=== PATIENT | female | born 1945 | race Caucasian/White ===

== ENCOUNTER 2020-06-21 10:39 | Outpatient (CLI) | payer MEDICARE, OTHER ==
[2020-06-21 18:22] LABS: INR-International Normal Ratio 1.1; PTT 30.7 sec (22.9-36.1)
[2020-06-21 18:42] LABS: Anion Gap 12 mmol/L (10-20); BUN (Urea Nitrogen) 5 mg/dL (9.8-20.1); Calc. Creatinine Clearance 0 mL/min (70-130); Calcium 9.4 mg/dL (7.8-10.44); Carbon Dioxide 28 mmol/L (23-31); Chloride 102 mmol/L (98-107); Estimated GFR-MDRD 80; Glucose 103 mg/dL (83-110); Potassium 3.9 mmol/L (3.5-5.1); Sodium 138 mmol/L (136-145)
[2020-06-21 19:24] LABS: Band 1 % (5-11); Eosinophils 6 % (0-10); Hemoglobin 10.2 g/dL (12.0-16.0); Hypochromia SLIGHT = 6-15 cells (100X) (0-5/hpf); Lymphocytes 15 % (21-51); MDiff Complete? YES; Mean Corpuscular HGB CONC 31.9 g/dL (32.0-36.0); Mean Corpuscular Hemoglobin 26.9 pg (27.0-31.0); Mean Corpuscular Volume 84.5 fL (78.0-98.0); Mean Platelet Volume 6.6 fL (7.4-10.4); Monocytes 16 % (0-10); Neutrophil 52 % (42-75); Platelet Count 443 thou/uL (130-400); Platelet Morphology Comment Appears Increased; Polychromasia SLIGHT = 2-3 cells (100X) (0-2/hpf); RBC Distribution Width 13.9 % (11.5-14.5); Reactive Lymphocytes 10 % (0-10); Red Blood Cell (RBC) Count 3.78 mill/uL (4.20-5.40); White Blood Cell (WBC) Count 9.4 thou/uL (4.8-10.8)
[2020-06-22 14:22] LABS: SARS-CoV-2 MS2 Positive; SARS-CoV-2 N Gene Negative; SARS-CoV-2 S Gene Negative; SARS-CoV-2 by NAA Not Detected (NotDetected); SARS-CoV-2 orf1ab Negative
== END 2020-06-21 10:40 | disposition home or self-care (01) ==
LOC: LABBT 10:39
PROVIDERS: ATTEND Orthopaedic Surgery
DX: Z01.812 Encounter for preprocedural laboratory examination (principal); Z11.59 Encounter for screening for other viral diseases; S42.201A Unspecified fracture of upper end of right humerus, initial encounter for closed fracture
CPT/HCPCS: 80048; 85025; 85610; 85730; U0003; 87635

== ENCOUNTER 2020-06-24 10:13 | Day surgery (SDC) | payer MEDICARE ==
[2020-06-22 13:05] VITALS: BMI 32.2
[2020-06-24] MEDS ORDERED: Fentanyl 100 MCG/2 ML VIAL ONE (10:57)
[2020-06-24] MEDS ORDERED: Midazolam HCl 2 mg/2 ml Vial ONE (10:57)
[2020-06-24] MEDS ORDERED: PROPOFOL 200 MG/20 ML VIAL ONE (11:13)
[2020-06-24] MEDS ORDERED: Lidocaine 1% PF 5 ML VIAL ONE (11:13)
[2020-06-24] MEDS ORDERED: Dexamethasone 20 MG/5 ML VIAL ONE (11:13)
[2020-06-24] MEDS ORDERED: Ondansetron PF 4 MG/2 ML Vial ONE (11:13)
[2020-06-24] MEDS ORDERED: Bupivacaine HCl 0.5%/Epinephrine 1:200,000/PF 30 ml Vial ONE (11:13)
[2020-06-24] MEDS ORDERED: Rocuronium Bromide 10 MG/ML (10ML VIAL) ONE (11:13)
[2020-06-24] MEDS ORDERED: PHENYLEPHRINE-NS 100 MCG/ML 10 ML SYRINGE ONE (11:13)
[2020-06-24] MEDS ORDERED: Ropivacaine 0.2% HCl/PF (40 MG/20 ML VIAL) ONE (11:13)
[2020-06-24] MEDS ORDERED: Glycopyrrolate 0.2 MG/ML 5 ML SYRINGE ONE (11:13)
[2020-06-24] MEDS ORDERED: EPHEDRINE 25 MG/5 ML SYRINGE ONE (11:13)
[2020-06-24] MEDS ORDERED: Sodium Chloride For Inhalation 0.9% 3 ML NEB ONE (11:56)
[2020-06-24] MEDS ORDERED: Phenylephrine 10 MG/ML VIAL ONE (13:37)
[2020-06-24] MEDS ORDERED: Rocuronium Bromide 50 MG/5 ML VIAL ONE (13:51)
--- NOTE | 2020-06-24 13:53 | RAD ---
EXAM: RIGHT HUMERUS TWO VIEWS: 06/24/20 HISTORY: Status post ORIF right humerus. COMPARISON: 06/21/20. FINDINGS: Placement of metal plate and screws stabilizing a comminuted markedly displaced and foreshortened hum eral neck fracture with marked improvement in position and alignment. No dislocation. IMPRESSION: Successful ORIF comminuted, displaced, angulated and foreshortened right humeral neck fracture with c onsiderable improvement in position and alignment. POS: RRE
--- NOTE | 2020-06-24 15:20 | OP ---
DATE OF PROCEDURE: 06/24/2020 OPERATION PERFORMED: Open reduction and internal fixation of right proximal humerus fracture. PREOPERATIVE DIAGNOSIS: Right displaced proximal humerus fracture. POSTOPERATIVE DIAGNOSIS: Right displaced proximal humerus fracture. COMPLICATIONS: None. ESTIMATED BLOOD LOSS: 200 mL. ANCHOR TACKER: Daniel Prakash PA-C. IMPLANTS: Synthes proximal humeral plate with multiple locking and nonlocking screws. INDICATIONS: Ms. Umana is a 74-year-old female who has fallen and fractured her proximal humerus. She has been indicated for open reduction and internal fixation to restore anatomic alignment and promote healing. Risks have been reviewed in detail. She elected to proceed with the operation. DESCRIPTION OF PROCEDURE: Ms. Umana was identified in the preoperative holding area. Her correct extremity was marked. She was carried to the operating room. She was positioned supine. General anesthesia was induced. A multidisciplinary time-out was performed. The right upper extremity was prepped and draped in sterile fashion. We began the procedure with a deltopectoral approach to the proximal humerus. We dissected down through the subcutaneous tissues and exposed the deltopectoral interval, which was developed bluntly. We then exposed the underlying proximal humerus and proximal humeral fracture. There was significant displacement of the fracture. At this point, we cleared the bony edges. We placed the suture in the subscapularis as well as the rotator interval. We performed a biceps tenotomy at this point and sutured the biceps tendon down to the soft tissues over the humerus. Next, we cleared the bony edges and thoroughly irrigated. We then reduced the fracture into an anatomic position. We held this with K-wire fixation. We then applied a proximal humeral plate. Multiple screws were placed proximally and distally. We thoroughly irrigated and took x-ray images. We took images in orthogonal planes. All screws were appropriate. We filled the remaining screw holes and again took final images. At this point, we began closure. The rotator interval was closed with an Ethibond suture followed by subscapularis closure. At this point, we proceeded to close the deltopectoral interval and finished our layered closure. A sterile dressing was applied. The patient was taken to the recovery room in good condition. Job ID: [id number]
[2020-06-24] MEDS ORDERED: HYDROcodone/Acetaminophen 5/325 mg Tablet ONE (15:35)
== END 2020-06-24 16:15 | disposition home or self-care (01) ==
LOC: SDC 10:13
PROVIDERS: ATTEND Orthopaedic Surgery
PROC: 0PSC04Z Reposition Right Humeral Head with Internal Fixation Device, Open Approach (ICD-10-PCS; principal; 2020-06-24)
PROC: 3E0T3BZ Introduction of Anesthetic Agent into Peripheral Nerves and Plexi, Percutaneous Approach (ICD-10-PCS; 2020-06-24)
DX: S42.291A Other displaced fracture of upper end of right humerus, initial encounter for closed fracture (principal); G89.18 Other acute postprocedural pain; I10 Essential (primary) hypertension; G40.909 Epilepsy, unspecified, not intractable, without status epilepticus; E03.9 Hypothyroidism, unspecified; F41.9 Anxiety disorder, unspecified; Z87.891 Personal history of nicotine dependence; Z79.899 Other long term (current) drug therapy; W19.XXXA Unspecified fall, initial encounter
CPT/HCPCS: 23615; 64415; 73060; 76000; C1713 ×3; J0670; J0690; J1100; J2250; J2370; J2405; J2704; J2795; J3010

== ENCOUNTER 2020-08-09 15:11 | Emergency (ER) | payer MEDICARE ==
[~2020-08-09 15:11] MED LIST: Iopamidol-370 76% 500 ML 1 ML ONE
[2020-08-09 16:33] LABS: #Basophils 0.1 thou/uL (0.0-0.2); #Eosinphils 0.5 thou/uL (0.0-0.7); #Lymphocytes 1.7 thou/uL (1.20-3.40); #Monocytes 1.5 thou/uL (0.11-0.59); #Neutrophils 7.6 thou/uL (1.40-6.50); %Basophils 0.6 % (0.0-1.0); %Eosinophils 4.4 % (0.0-10.0); %Lymphocytes 15.1 % (21.0-51.0); %Neutrophils 66.9 % (42.0-75.0); Hemoglobin 9.5 g/dL (12.0-16.0); Mean Corpuscular HGB CONC 31.6 g/dL (32.0-36.0); Mean Corpuscular Hemoglobin 24.3 pg (27.0-31.0); Mean Corpuscular Volume 76.7 fL (78.0-98.0); Mean Platelet Volume 6.7 fL (7.4-10.4); Platelet Count 431 thou/uL (130-400); RBC Distribution Width 19.8 % (11.5-14.5); Red Blood Cell (RBC) Count 3.92 mill/uL (4.20-5.40); White Blood Cell (WBC) Count 11.4 thou/uL (4.8-10.8)
[2020-08-09 16:50] LABS: ALT (SGPT) 12 U/L (8-55); AST (SGOT) 15 U/L (5-34); Albumin 3.9 g/dL (3.4-4.8); Alkaline Phosphatase 255 U/L (40-110); Anion Gap 12 mmol/L (10-20); BUN (Urea Nitrogen) 5 mg/dL (9.8-20.1); Bilirubin, Total 0.2 mg/dL (0.2-1.2); Calc. Creatinine Clearance 0 mL/min (70-130); Calcium 9.3 mg/dL (7.8-10.44); Carbon Dioxide 27 mmol/L (23-31); Chloride 101 mmol/L (98-107); Estimated GFR-MDRD 75; Globulin 3.9 g/dL (2.4-3.5); Glucose 103 mg/dL (83-110); Lipase 10 U/L (8-78); Protein, Total 7.8 g/dL (6.0-8.3); Sodium 137 mmol/L (136-145)
[2020-08-09 16:57] LABS: Bilirubin Negative (Negative); Blood, Urine Negative (Negative); Clarity Clear (Clear); Glucose, Urine (Dipstick) Normal (Negative); Ketone, Urine Negative (Negative); Leukocyte Negative Leu/uL (Negative); Nitrite Negative (Negative); Protein, Urine (Dipstick) Negative (Neg-Trace); Specific Gravity, Urine 1.003 (1.002-1.036); Urobilinogen Normal mg/dL (Less than 2); pH, Urine 6.5 (5.0-9.0)
[2020-08-09] MEDS ORDERED: Morphine 4 MG/ML VIAL ONE (17:31)
[2020-08-09] MEDS ORDERED: Ketorolac Tromethamine 30 MG/ML VIAL ONE (17:31)
--- NOTE | 2020-08-09 20:20 | CT ---
CT ABDOMEN AND PELVIS WITH IV CONTRAST: Date: 08/09/2020 PROVIDED CLINICAL HISTORY: Abdominal pain. FINDINGS: The visualized lung bases are free of significant opacity. There is a simple appearing cyst seen involving the right kidney. The solid abdominal organs demonstr ate an otherwise unremarkable CT appearance. There is conspicuous fecal retention within the transverse and right colon. There is no bowel dilatat ion, inflammatory fat stranding, free fluid, or free air apparent. There is no evidence for appendici tis. The gallbladder is decompressed. There is a 1.8 x 3.7 cm soft tissue mass in the posterior aspect of the right upper quadrant, abuttin g and somewhat inseparable from the posterior aspect of the right hepatic lobe. This is immediately a djacent to the right tenth rib. This demonstrates Hounsfield units of 55, which could indicate an enh ancing process. Occasional vascular calcifications are seen. The osseous structures demonstrate no concerning lytic or blastic lesions. IMPRESSION: 1. Conspicuous colonic fecal retention suggesting constipation. 2. 3.7 cm soft tissue mass within the right upper quadrant posteriorly adjacent to both the liver an d the posterior right tenth rib. 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 Other etiologies are possible. POS: CHARAN
== END 2020-08-09 20:24 | disposition home or self-care (01) ==
LOC: ERS 15:11
DX: K59.00 Constipation, unspecified (principal); D64.9 Anemia, unspecified; K76.89 Other specified diseases of liver; I10 Essential (primary) hypertension; J44.9 Chronic obstructive pulmonary disease, unspecified; F41.9 Anxiety disorder, unspecified; F32.9 Major depressive disorder, single episode, unspecified; Z79.899 Other long term (current) drug therapy
CPT/HCPCS: 36415; 74177; 80053; 81003; 83690; 85025; 96374; 96375; J1885; J2270; Q9967

== ENCOUNTER 2020-08-26 12:48 | Outpatient (CLI) | payer MEDICARE ==
--- NOTE | 2020-08-26 14:43 | PET ---
EXAM: PET/CT HISTORY: Soft tissue mass in the right upper quadrant, adjacent to the liver and posterior right 10th rib TECHNIQUE: PET scanning with CT attenuation correction was performed from the base of the brain to the proximal thighs following the intravenous administration of 9.7 millicuries [id number]. COMPARISON: CT abdomen pelvis with contrast dated August 09, 2020 FINDINGS: Biodistribution:The biodistribution for the exam appears acceptable. Head and neck: There is appropriate background activity within the brain. No hypermetabolic lymphaden opathy or masses identified. Thorax: No hypermetabolic pulmonary lesion, pleural effusion or lymphadenopathy is present. Abdomen and pelvis: There is expected background activity within the GI and systems.The 4.0 x 1.8 cm soft tissue density mass involving the undersurface of the right posterior lateral 10th rib, involving the right posterior lateral chest wall and diaphragm, is stable to the comparison examinati on. There is no appreciable hypermetabolic activity associated with this mass lesion. Peak SUV is 1.55 and a mean activity is 1.24. No hypermetabolic mass or lymphadenopathy is seen within the abdome n or pelvis. Osseous structures and skin: No hypermetabolic skin or osseous lesion is identified. IMPRESSION: 1. Soft tissue mass lesion involving the undersurface of the right posterior lateral 10th rib and the right posterior lateral chest wall and diaphragm demonstrates no hypermetabolic uptake. The differential consideration provided in the comparison CT the abdomen and pelvis consisting of a nerve sheath tumor, schwannoma or neurofibroma, arising from an intercostal nerve remains a primary consideration. Small focus of fibromatosis could have a similar appearance. Short-term CT follow-up w ith and without contrast of the abdomen may be helpful to document stability in 6 months.
== END 2020-08-26 12:49 | disposition home or self-care (01) ==
LOC: PET 12:48
PROVIDERS: ATTEND Internal Medicine Hematology & Oncology
DX: R19.01 Right upper quadrant abdominal swelling, mass and lump (principal); M89.9 Disorder of bone, unspecified
CPT/HCPCS: 78815; A9552

== ENCOUNTER 2020-12-14 10:20 | Outpatient (CLI) | payer MEDICARE ==
[~2020-12-14 10:20] MED LIST changes: +Iopamidol 370 76% 100 ML VIAL ONE; -Iopamidol-370 76% 500 ML 1 ML ONE
--- NOTE | 2020-12-14 13:04 | CT ---
CT OF THE ABDOMEN AND PELVIS WITH IV CONTRAST: INDICATION: Followup mass in the right upper quadrant of the abdomen with right upper quadrant abdominal pain. COMPARISON: Prior PET CT dated 08/26/[address] of the abdomen and pelvis dated 08/09/2020. FINDINGS: The lung bases are clear. No focal hepatic lesion is evident. The gallbladder, pancreas, adrenal glands, and spleen appear wit hin normal limits. There is a stable right renal cyst. No hydronephrosis is grossly evident. No fr ee fluid or enlarged lymph nodes are evident. There are moderate calcifications involving the abdomi nopelvic vasculature. The soft tissue density underlying the right posterolateral 10th rib, adjacent to the right hepatic l obe is not appreciably changed in size measuring 3.7 x 1.4 cm where previously the lesion measured 3. 7 x 1.8 cm. When accounting for slight differences in positioning and angulation of the CT slices, t his is likely stable. There is no associated hypermetabolic activity associated with this mass lesio n on the comparison PET CT. The small and large bowel reveal no definite acute abnormality. The extent of retained stool has imp roved. The uterus is surgically absent. There has been interval development of a moderate to severe wedge compression fracture of T12 with some retropulsion of bone fragments from the posterior superi or margin of the T12 vertebral body causing at least mild osseous central canal narrowing. No additi onal acute fracture is evident. There is healed deformity involving the right inferior pubic ramus t hat is stable. IMPRESSION: 1. No appreciable change in the soft tissue mass underlying the right posterolateral 10th rib, adjac ent to the right hepatic lobe. 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 2. Interval development of a prominent wedge compression abnormality of T12 with retropulsion of bon e fragments from the posterior superior margin of T12 causing mild central canal narrowing. 3. Stable right renal cyst. 4. Improvement in the amount of fecal retention. POS: TPC
== END 2020-12-14 10:21 | disposition home or self-care (01) ==
LOC: BICCT 10:20
PROVIDERS: ATTEND Internal Medicine Hematology & Oncology
DX: R19.01 Right upper quadrant abdominal swelling, mass and lump (principal); M48.04 Spinal stenosis, thoracic region; N28.1 Cyst of kidney, acquired; R19.5 Other fecal abnormalities
CPT/HCPCS: 74177; 82565; Q9967